=== PATIENT | female | born 1985 | race Caucasian/White ===

== ENCOUNTER 2018-07-14 19:38 | Observation (INO) | payer OTHER ==
[~2018-07-14] VITALS: Ht 160 cm; Wt 70.3 kg
[2018-07-14 20:51] LABS: CLARITY URINE CLEAR (CLEAR); COLOR URINE YELLOW (YELLOW); KETONES URINE NEGATIVE (NEGATIVE); LEUKOCYTE ESTERASE URINE 3+ (NEGATIVE); NITRITE URINE NEGATIVE (NEGATIVE); OCCULT BLOOD URINE NEGATIVE (NEGATIVE); PROTEIN URINE NEGATIVE (NEGATIVE); SPECIFIC GRAVITY URINE 1.008 (1.005-1.030); UROBILINOGEN URINE 0.2 E.U./dL (0.2-1.0)
[2018-07-14] MEDS ORDERED: PNV1TABL76 MT (20:57)
[2018-07-14] MEDS ORDERED: LACTATED RINGERS 1,000 ML IV SCH (21:30)
[2018-07-14] MEDS ORDERED: ACETAMINOPHEN 500MG TABLET PO NR (21:30)
[2018-07-14] MEDS ORDERED: CEFAZOLIN 2,000 MG in DEXT 5% WATER 100 ML IV NR (21:30)
== END 2018-07-14 22:45 | disposition home or self-care (01) ==
LOC: L&D 19:38
PROVIDERS: ADMIT Obstetrics & Gynecology; ATTEND Obstetrics & Gynecology
DX: O99.89 Other specified diseases and conditions complicating pregnancy, childbirth and the puerperium (principal); M54.5 Low back pain; Z3A.23 23 weeks gestation of pregnancy
CPT/HCPCS: 81003; 96365; A4215; G0378; J0690; J7120; J7060